=== PATIENT | female | born 1970 | race Caucasian/White ===

== ENCOUNTER 2022-10-27 13:48 | Emergency (ER) | payer BC, SELFPAY ==
[2022-10-27 14:25] LABS: #Lymphocytes 1.1 thou/uL (1.20-3.40); #Monocytes 1.2 thou/uL (0.11-0.59); #Neutrophils 9.3 thou/uL (1.40-6.50); %Basophils 0.1 % (0.0-1.0); %Eosinophils 0.1 % (0.0-10.0); %Lymphocytes 9.2 % (21.0-51.0); %Monocytes 10.3 % (0.0-10.0); %Neutrophils 80.3 % (42.0-75.0); Hemoglobin 10.2 g/dL (12.0-16.0); Mean Corpuscular HGB CONC 33.7 g/dL (32.0-36.0); Mean Platelet Volume 7.4 fL (7.4-10.4); Platelet Count 238 10x3/uL (130-400); RBC Distribution Width 14.4 % (11.5-14.5); Red Blood Cell (RBC) Count 3.52 mill/uL (4.20-5.40); White Blood Cell (WBC) Count 11.5 10x3/uL (4.8-10.8)
[2022-10-27] MEDS ORDERED: Acetaminophen 500 MG TAB ONE (14:31)
[2022-10-27] MEDS ORDERED: Ibuprofen 800 MG TAB ONE (14:31)
[2022-10-27 14:36] LABS: Bacteria/HPF 2+ HPF (None Seen); Bilirubin Negative (Negative); Blood, Urine 2+ (Negative); Clarity Clear (Clear); Glucose, Urine (Dipstick) Normal (Negative); Ketone, Urine Negative (Negative); Leukocyte 250 Leu/uL (Negative); Nitrite Negative (Negative); Protein, Urine (Dipstick) 30 mg/dL (Neg-Trace); RBC/HPF 0-3 HPF (0-3); Specific Gravity, Urine 1.006 (1.002-1.036); Urobilinogen Normal mg/dL (Less than 2)
[2022-10-27 14:47] LABS: ALT (SGPT) 32 U/L (8-55); AST (SGOT) 32 U/L (5-34); Alkaline Phosphatase 182 U/L (40-110); Anion Gap 13 mmol/L (10-20); BUN (Urea Nitrogen) 10 mg/dL (7.0-18.7); Bilirubin, Total 0.3 mg/dL (0.2-1.2); Calc. Creatinine Clearance 0 mL/min (70-130); Calcium 7.8 mg/dL (7.8-10.44); Carbon Dioxide 21 mmol/L (22-29); Chloride 106 mmol/L (98-107); Estimated GFR 69; Globulin 2.7 g/dL (2.4-3.5); Glucose 134 mg/dL (70-105); Potassium 2.8 mmol/L (3.5-5.1); Protein, Total 5.7 g/dL (6.0-8.3); Sodium 137 mmol/L (136-145)
[2022-10-27] MEDS ORDERED: cefTRIAXone\\ROCEPHIN 2 GM VIAL ONE (15:39)
[2022-10-27] MEDS ORDERED: Potassium Chloride 20 MEQ TAB ONE (15:39)
[2022-10-27 16:56] LABS: SARS-CoV-2 NAA Rapid Test Not Detected (NotDetected)
== END 2022-10-27 17:45 | disposition home or self-care (01) ==
LOC: ERS 13:48
DX: N39.0 Urinary tract infection, site not specified (principal); R30.0 Dysuria; D72.829 Elevated white blood cell count, unspecified; E78.5 Hyperlipidemia, unspecified; I10 Essential (primary) hypertension; Z20.822 Contact with and (suspected) exposure to COVID-19
CPT/HCPCS: 36415; 71046; 80053; 81003; 81015; 83605; 85025; 96365; J0696

== ENCOUNTER 2022-10-29 19:34 | Emergency (ER) | payer SELFPAY ==
[2022-10-29] MEDS ORDERED: cefTRIAXone\\ROCEPHIN 1 GM VIAL ONE (20:09)
[2022-10-29] MEDS ORDERED: Acetaminophen 500 MG TAB ONE (20:09)
[2022-10-29 20:16] LABS: Bilirubin Negative (Negative); Blood, Urine 1+ (Negative); Clarity Clear (Clear); Glucose, Urine (Dipstick) Normal (Negative); Ketone, Urine Negative (Negative); Leukocyte 75 Leu/uL (Negative); Nitrite Negative (Negative); Protein, Urine (Dipstick) 30 mg/dL (Neg-Trace); RBC/HPF 0-3 HPF (0-3); Specific Gravity, Urine 1.018 (1.002-1.036); Squamous Epithelial 0-3 HPF (0-3); Urobilinogen Normal mg/dL (Less than 2); WBC/HPF 21-50 HPF (0-3); pH, Urine 6.5 (5.0-9.0)
[2022-10-29 20:17] LABS: Bacteria/HPF Rare-Few HPF (None Seen)
[2022-10-29 20:44] LABS: #Eosinphils 0.1 thou/uL (0.0-0.7); #Lymphocytes 1.7 thou/uL (1.20-3.40); #Monocytes 1.1 thou/uL (0.11-0.59); %Basophils 0.4 % (0.0-1.0); %Eosinophils 1.3 % (0.0-10.0); %Lymphocytes 17.5 % (21.0-51.0); %Monocytes 10.7 % (0.0-10.0); %Neutrophils 70.1 % (42.0-75.0); Hemoglobin 9.9 g/dL (12.0-16.0); Mean Corpuscular HGB CONC 32.9 g/dL (32.0-36.0); Mean Corpuscular Hemoglobin 28.5 pg (27.0-31.0); Mean Corpuscular Volume 86.7 fl (78.0-98.0); Mean Platelet Volume 6.9 fL (7.4-10.4); Platelet Count 355 10x3/uL (130-400); RBC Distribution Width 14.8 % (11.5-14.5); Red Blood Cell (RBC) Count 3.46 mill/uL (4.20-5.40); White Blood Cell (WBC) Count 9.9 10x3/uL (4.8-10.8)
[2022-10-29] MEDS ORDERED: Vancomycin 1 GM/200 ML (FROZEN) BAG ONE (20:56)
[2022-10-29 20:59] LABS: ALT (SGPT) 23 U/L (8-55); AST (SGOT) 22 U/L (5-34); Albumin 3.1 g/dL (3.5-5.0); Alkaline Phosphatase 181 U/L (40-110); Anion Gap 14 mmol/L (10-20); BUN (Urea Nitrogen) 12 mg/dL (7.0-18.7); Bilirubin, Total 0.3 mg/dL (0.2-1.2); Calc. Creatinine Clearance 0 mL/min (70-130); Calcium 8.4 mg/dL (7.8-10.44); Carbon Dioxide 24 mmol/L (22-29); Chloride 105 mmol/L (98-107); Estimated GFR 90; Globulin 3.9 g/dL (2.4-3.5); Glucose 102 mg/dL (70-105); Potassium 2.9 mmol/L (3.5-5.1); Sodium 140 mmol/L (136-145)
== END 2022-10-29 22:56 | disposition home or self-care (01) ==
LOC: ERS 19:34
DX: N39.0 Urinary tract infection, site not specified (principal); I10 Essential (primary) hypertension; E78.5 Hyperlipidemia, unspecified
CPT/HCPCS: 36415; 74176; 80053; 81003; 81015; 83605; 85025; 87040; 87086; 96365; 96366; 96367; J0696; J3370-JW

== ENCOUNTER 2023-01-22 17:52 | Inpatient (IN) | payer SELFPAY ==
[2023-01-22] MEDS ORDERED: Ketorolac Tromethamine 30 MG/ML VIAL ONE (18:17)
[2023-01-22 18:55] LABS: #Basophils 0.1 thou/uL (0.0-0.2); #Eosinphils 0.2 thou/uL (0.0-0.7); #Lymphocytes 3.1 thou/uL (1.20-3.40); #Monocytes 0.5 thou/uL (0.11-0.59); #Neutrophils 5.1 thou/uL (1.40-6.50); %Basophils 0.9 % (0.0-1.0); %Eosinophils 2.2 % (0.0-10.0); %Lymphocytes 34.3 % (21.0-51.0); %Monocytes 5.9 % (0.0-10.0); %Neutrophils 56.8 % (42.0-75.0); Hemoglobin 12.1 g/dL (12.0-16.0); Mean Corpuscular HGB CONC 33.1 g/dL (32.0-36.0); Mean Corpuscular Hemoglobin 29.6 pg (27.0-31.0); Mean Corpuscular Volume 89.5 fl (78.0-98.0); Platelet Count 287 10x3/uL (130-400); RBC Distribution Width 13.7 % (11.5-14.5); Red Blood Cell (RBC) Count 4.08 mill/uL (4.20-5.40)
[2023-01-22 19:15] LABS: ALT (SGPT) 18 U/L (8-55); AST (SGOT) 17 U/L (5-34); Albumin 4.1 g/dL (3.5-5.0); Alkaline Phosphatase 72 U/L (40-110); Anion Gap 13 mmol/L (10-20); BUN (Urea Nitrogen) 15 mg/dL (7.0-18.7); Bilirubin, Total 0.2 mg/dL (0.2-1.2); Calc. Creatinine Clearance 0 mL/min (70-130); Calcium 9.2 mg/dL (7.8-10.44); Carbon Dioxide 21 mmol/L (22-29); Chloride 107 mmol/L (98-107); Estimated GFR 83; Globulin 3.2 g/dL (2.4-3.5); Glucose 96 mg/dL (70-105); Potassium 3.6 mmol/L (3.5-5.1); Protein, Total 7.3 g/dL (6.0-8.3); Sodium 137 mmol/L (136-145)
[2023-01-22] MEDS ORDERED: Diazepam 10 MG/2 ML SYRINGE ONE (19:57)
[2023-01-22] MEDS ORDERED: Orphenadrine Citrate 60 MG/2 ML VIAL ONE (21:08)
[2023-01-22] MEDS ORDERED: Dexamethasone 10 MG/ML VIAL ONE (21:19)
[2023-01-22] MEDS ORDERED: Calcium Carbonate 500 MG ChewTAB PO PRN (21:25)
[2023-01-22] MEDS ORDERED: Ondansetron PF 4 MG/2 ML Vial IVP PRN (21:25)
[2023-01-22] MEDS ORDERED: Ondansetron ODT 4 MG TAB PO PRN (21:25)
[2023-01-22] MEDS ORDERED: Senokot S 8.6-50 MG TAB PO PRN (21:25)
[2023-01-22] MEDS ORDERED: hydrALAZINE 20 MG/ML VIAL SLOW IVP PRN (21:32)
[2023-01-22] MEDS ORDERED: Sodium Chloride 0.9% 1,000 ML IV SCH (22:00)
[2023-01-22] MEDS: Ketorolac Tromethamine 30 MG/ML VIAL IVP PRN (23:21)
[2023-01-22] MEDS: Acetaminophen 325 MG TAB PO PRN (23:22)
[2023-01-22] MEDS: Dexamethasone 4 mg/ml Vial SLOW IVP SCH (23:22)
[2023-01-22] MEDS: Cyclobenzaprine 10 MG TAB PO PRN (23:22)
[2023-01-22 23:57] VITALS: BMI 24.8
[2023-01-23] MEDS: Morphine 2 MG/ML VIAL SLOW IVP PRN ×2 (00:49→06:53)
[2023-01-23] MEDS: Dexamethasone 4 mg/ml Vial SLOW IVP SCH ×3 (05:05→21:14)
[2023-01-23 07:03] LABS: #Lymphocytes 0.8 thou/uL (1.20-3.40); #Neutrophils 8.9 thou/uL (1.40-6.50); %Basophils 0.1 % (0.0-1.0); %Eosinophils 0.2 % (0.0-10.0); %Lymphocytes 8.3 % (21.0-51.0); %Monocytes 0.4 % (0.0-10.0); Hemoglobin 12.4 g/dL (12.0-16.0); Mean Corpuscular HGB CONC 32.6 g/dL (32.0-36.0); Mean Corpuscular Hemoglobin 29.2 pg (27.0-31.0); Mean Corpuscular Volume 89.6 fl (78.0-98.0); Mean Platelet Volume 7.2 fL (7.4-10.4); Platelet Count 291 10x3/uL (130-400); RBC Distribution Width 13.7 % (11.5-14.5); Red Blood Cell (RBC) Count 4.23 mill/uL (4.20-5.40); White Blood Cell (WBC) Count 9.8 10x3/uL (4.8-10.8)
[2023-01-23 07:11] LABS: Prothrombin Time 13.6 sec (12.0-14.7)
[2023-01-23 07:25] LABS: ALT (SGPT) 18 U/L (8-55); AST (SGOT) 17 U/L (5-34); Alkaline Phosphatase 65 U/L (40-110); Anion Gap 13 mmol/L (10-20); BUN (Urea Nitrogen) 16 mg/dL (7.0-18.7); Bilirubin, Total 0.2 mg/dL (0.2-1.2); Calc. Creatinine Clearance 99 mL/min (70-130); Calcium 8.8 mg/dL (7.8-10.44); Carbon Dioxide 18 mmol/L (22-29); Chloride 110 mmol/L (98-107); Estimated GFR 97; Globulin 3.4 g/dL (2.4-3.5); Glucose 129 mg/dL (70-105); Potassium 4.5 mmol/L (3.5-5.1); Protein, Total 7.4 g/dL (6.0-8.3); Sodium 136 mmol/L (136-145)
[2023-01-23] MEDS: Famotidine 20 MG TAB PO SCH ×2 (08:32→21:14)
[2023-01-23] MEDS: Cyclobenzaprine 10 MG TAB PO PRN ×2 (11:38→17:56)
[2023-01-23] MEDS: Acetaminophen/Codeine 30-300mg Tablet PO PRN ×2 (13:21→21:14)
[2023-01-23] MEDS ORDERED: Dexamethasone 4 mg/ml Vial SLOW IVP SCH (14:00)
[2023-01-23] MEDS: Acetaminophen 325 MG TAB PO PRN (16:08)
[2023-01-24] MEDS: Dexamethasone 4 mg/ml Vial SLOW IVP SCH (06:04)
[2023-01-24] MEDS: Acetaminophen/Codeine 30-300mg Tablet PO PRN (06:07)
[2023-01-24 08:19] VITALS: BP 149/85; TEMP 98.3
[2023-01-24] MEDS: Ketorolac Tromethamine 30 MG/ML VIAL IVP PRN (09:17)
[2023-01-24] MEDS: Cyclobenzaprine 10 MG TAB PO PRN (09:23)
[2023-01-24] MEDS: Famotidine 20 MG TAB PO SCH (09:23)
[2023-01-24] MEDS ORDERED: Dexamethasone 4 MG TAB PO SCH (15:00)
== END 2023-01-24 12:42 | disposition home or self-care (01) | DRG 552 ==
LOC: SUATTDRO 17:52 → ERS 17:52 → OBSVTOIN 21:29 → SURG A 21:29
PROVIDERS: ADMIT Internal Medicine; ATTEND Internal Medicine
DX: M48.02 Spinal stenosis, cervical region (principal); E78.5 Hyperlipidemia, unspecified; I10 Essential (primary) hypertension; F32.A Depression, unspecified; F41.9 Anxiety disorder, unspecified; Z88.5 Allergy status to narcotic agent; M50.30 Other cervical disc degeneration, unspecified cervical region
CPT/HCPCS: 36415; 72141; 80053; 85025; 85610; 96374; 96375; J1100; J1885; J2272; J2360; J3360; J7050

== ENCOUNTER 2023-08-05 13:43 | Inpatient (IN) | payer SELFPAY ==
[2023-08-05 15:31] LABS: #Basophils 0.1 thou/uL (0.0-0.2); #Eosinphils 0.4 thou/uL (0.0-0.7); #Monocytes 0.6 thou/uL (0.11-0.59); #Neutrophils 5.1 thou/uL (1.40-6.50); %Basophils 0.9 % (0.0-1.0); %Lymphocytes 29.1 % (21.0-51.0); %Monocytes 6.9 % (0.0-10.0); %Neutrophils 57.6 % (42.0-75.0); Hematocrit 34.9 % (36.0-47.0); Hemoglobin 11.1 g/dL (12.0-16.0); Mean Corpuscular HGB CONC 31.8 g/dL (32.0-36.0); Mean Corpuscular Hemoglobin 28.2 pg (27.0-31.0); Mean Corpuscular Volume 88.6 fl (78.0-98.0); Mean Platelet Volume 9.8 fL (7.4-10.4); Platelet Count 304 10x3/uL (130-400); Red Blood Cell (RBC) Count 3.94 mill/uL (4.20-5.40); White Blood Cell (WBC) Count 8.9 10x3/uL (4.8-10.8)
[2023-08-05 16:00] LABS: ALT (SGPT) 13 U/L (8-55); AST (SGOT) 20 U/L (5-34); Albumin 4.2 g/dL (3.5-5.0); Alkaline Phosphatase 84 U/L (40-110); Anion Gap 13 mmol/L (10-20); BUN (Urea Nitrogen) 14 mg/dL (7.0-18.7); Bilirubin, Total 0.2 mg/dL (0.2-1.2); CK (CPK) 251 U/L (29-168); Calc. Creatinine Clearance 0 mL/min (70-130); Calcium 8.6 mg/dL (7.8-10.44); Carbon Dioxide 24 mmol/L (22-29); Chloride 109 mmol/L (98-107); Estimated GFR 99; Globulin 2.2 g/dL (2.4-3.5); Glucose 87 mg/dL (70-105); Lipase 35 U/L (8-78); Potassium 3.9 mmol/L (3.5-5.1); Protein, Total 6.4 g/dL (6.0-8.3); Sodium 142 mmol/L (136-145)
[2023-08-05 16:03] LABS: Troponin I Less than 0.010 ng/mL (< 0.028)
[2023-08-05 18:20] LABS: Bacteria/HPF None Seen HPF (None Seen); Bilirubin Negative (Negative); Blood, Urine Negative (Negative); CAUTI Indications for Culture Dysuria,urgency,freq; Clarity Clear (Clear); Glucose, Urine (Dipstick) Normal (Negative); Ketone, Urine Negative (Negative); Leukocyte 75 Leu/uL (Negative); Nitrite Negative (Negative); Protein, Urine (Dipstick) 10 mg/dL (Neg-Trace); RBC/HPF 0-3 HPF (0-3); Specific Gravity, Urine 1.026 (1.002-1.036); Urobilinogen Normal mg/dL (Less than 2); WBC/HPF 21-50 HPF (0-3)
[2023-08-05 18:23] LABS: Urine Culture Reflex Yes Yes
[2023-08-05] MEDS ORDERED: Ketorolac Tromethamine 30 MG/ML VIAL ONE (20:22)
[2023-08-05] MEDS ORDERED: Ondansetron PF 4 MG/2 ML Vial ONE (20:22)
[2023-08-05] MEDS ORDERED: Nitrofurantoin Monohyd/M-Cryst 100 MG CAP ONE (20:22)
[2023-08-05] MEDS ORDERED: Dexamethasone 10 MG/ML VIAL ONE (22:39)
[2023-08-05] MEDS ORDERED: fentaNYL 50 mcg/mL 1 mL Vial ONE (22:39)
[2023-08-05] MEDS ORDERED: Acetaminophen 325 MG TAB PO PRN (23:10)
[2023-08-05] MEDS ORDERED: Dextrose 5%-Lactated Ringers 1,000 ML IV SCH (23:45)
[2023-08-05] MEDS ORDERED: Ondansetron ODT 4 MG TAB PO PRN (23:54)
[2023-08-05] MEDS ORDERED: Ondansetron PF 4 MG/2 ML Vial IVP PRN (23:54)
[2023-08-05] MEDS ORDERED: Gabapentin 300 MG CAP PO SCH (23:59)
[2023-08-06 01:25] VITALS: BMI 23.3
[2023-08-06] MEDS: tiZANidine HCl 4 MG TAB PO PRN ×2 (01:54→21:11)
[2023-08-06] MEDS ORDERED: Ketorolac Tromethamine 30 MG/ML VIAL IVP PRN (03:00)
[2023-08-06] MEDS: Dexamethasone 4 MG TAB PO SCH ×3 (06:10→17:33)
[2023-08-06 06:41] LABS: INR-International Normal Ratio 0.9; Prothrombin Time 12.8 sec (12.0-14.7)
[2023-08-06 06:42] LABS: PTT 27.7 sec (22.9-36.1)
[2023-08-06 06:58] LABS: Anion Gap 14 mmol/L (10-20); BUN (Urea Nitrogen) 12 mg/dL (7.0-18.7); Calc. Creatinine Clearance 98 mL/min (70-130); Calcium 8.7 mg/dL (7.8-10.44); Carbon Dioxide 20 mmol/L (22-29); Chloride 109 mmol/L (98-107); Estimated GFR 104; Glucose 142 mg/dL (70-105); Potassium 4.1 mmol/L (3.5-5.1); Sodium 139 mmol/L (136-145)
[2023-08-06] MEDS: Gabapentin 300 MG CAP PO SCH ×3 (08:24→21:10)
[2023-08-06] MEDS: Acetaminophen/Codeine 30-300mg Tablet PO PRN ×2 (12:51→21:11)
[2023-08-06] MEDS ORDERED: Iopamidol-370 76% 500 ML MDV (1 ML CHARGE) ONE (14:42)
[2023-08-06] MEDS ORDERED: Vancomycin 1 GM in Premix 1 BAG IVPB SCH ×2 (15:18→15:45)
[2023-08-06] MEDS: Cefepime 2 GM in Sodium Chloride 0.9% 100 ML IVPB SCH (15:52)
[2023-08-07] MEDS: Dexamethasone 4 MG TAB PO SCH ×5 (00:32→23:50)
[2023-08-07] MEDS: Vancomycin 1 GM in Premix 1 BAG IVPB SCH ×2 (04:40→17:20)
[2023-08-07] MEDS: Cefepime 2 GM in Sodium Chloride 0.9% 100 ML IVPB SCH ×2 (04:41→17:20)
[2023-08-07] MEDS ORDERED: Thrombin 5000 UNITS/5 ML VIAL ONE (07:26)
[2023-08-07] MEDS ORDERED: Bacitracin Zinc Ointment 30 gm TUBE ONE (07:26)
[2023-08-07] MEDS ORDERED: Vancomycin 1 GM VIAL ONE (07:26)
[2023-08-07] MEDS ORDERED: Midazolam HCl 2 mg/2 ml Vial ONE (07:37)
[2023-08-07] MEDS ORDERED: Fentanyl 250 MCG/5 ML VIAL ONE (07:37)
[2023-08-07] MEDS: Gabapentin 300 MG CAP PO SCH ×3 (08:21→22:12)
[2023-08-07] MEDS ORDERED: Dexamethasone 20 MG/5 ML VIAL ONE (08:40)
[2023-08-07] MEDS ORDERED: Ondansetron PF 4 MG/2 ML Vial ONE (08:40)
[2023-08-07] MEDS ORDERED: Vecuronium 10 MG VIAL ONE (08:40)
[2023-08-07] MEDS ORDERED: NEOSTIGMINE 3 MG/3 ML SYR 3 MG/3 ML SYRINGE ONE (08:40)
[2023-08-07] MEDS ORDERED: PROPOFOL 200 MG/20 ML VIAL ONE (08:40)
[2023-08-07] MEDS ORDERED: PHENYLEPHRINE-NS 100 MCG/ML 10 ML SYRINGE ONE (08:40)
[2023-08-07] MEDS ORDERED: Rocuronium Bromide 10 MG/ML (10ML VIAL) ONE (08:40)
[2023-08-07] MEDS ORDERED: Lidocaine 1% PF 5 ML VIAL ONE (08:40)
[2023-08-07] MEDS ORDERED: Glycopyrrolate 0.2 MG/ML 5 ML SYRINGE ONE (08:40)
[2023-08-07] MEDS ORDERED: diphenhydrAMINE 25 MG CAP PO PRN ×6 (14:03→21:10)
[2023-08-07] MEDS ORDERED: Milk Of Magnesia 30 ML UDCUP PO PRN (14:03)
[2023-08-07] MEDS ORDERED: Promethazine HCl 25 MG/ML VIAL IM PRN ×6 (14:12→21:10)
[2023-08-07] MEDS ORDERED: diphenhydrAMINE 50 MG/ML VIAL IM PRN ×5 (14:12→21:10)
[2023-08-07] MEDS ORDERED: Naloxone HCl 0.4 mg/ml Vial IV PRN ×5 (14:12→21:10)
[2023-08-07] MEDS ORDERED: FENTANYL 500 MCG/10 ML VIAL 2,000 MCG in Sodium Chloride 0.9% 60 ML IV PRN (14:12)
[2023-08-07] MEDS ORDERED: Ondansetron PF 4 MG/2 ML Vial IVP PRN ×5 (14:12→21:10)
[2023-08-07] MEDS ORDERED: diphenhydrAMINE 50 MG/ML VIAL IVP PRN ×5 (14:12→21:10)
[2023-08-07] MEDS ORDERED: CEFAZOLIN 2 GM in Sodium Chloride 0.9% 100 ML IVPB SCH (14:15)
[2023-08-07] MEDS ORDERED: ACTIVE PCA FS PRN (14:15)
[2023-08-07] MEDS ORDERED: Ondansetron HCl/PF 4 MG/2 ML Vial IVP PRN (14:17)
[2023-08-07] MEDS ORDERED: fentaNYL PF 100 MCG/2 ML SYRINGE ONE (14:26)
[2023-08-07] MEDS ORDERED: hydrALAZINE 20 MG/ML VIAL ONE (15:19)
[2023-08-07] MEDS: Sodium Chloride 0.9% 1,000 ML IV SCH (17:15)
[2023-08-07] MEDS ORDERED: Morphine CADD 1 MG/ML CADD IVPB PRN ×2 (20:57→21:03)
[2023-08-07] MEDS ORDERED: Communication Order-Pharmacy FS SCH ×4 (21:00→21:15)
[2023-08-07] MEDS ORDERED: Morphine 10 MG/ML VIAL SLOW IVP PRN (21:08)
[2023-08-07] MEDS: Morphine 4 MG/ML VIAL SLOW IVP PRN (22:18)
[2023-08-07] MEDS: tiZANidine HCl 4 MG TAB PO PRN (23:50)
[2023-08-08] MEDS: Sodium Chloride 0.9% 1,000 ML IV SCH ×2 (03:27→17:38)
[2023-08-08] MEDS: Cefepime 2 GM in Sodium Chloride 0.9% 100 ML IVPB SCH ×2 (03:27→14:27)
[2023-08-08] MEDS: Morphine 4 MG/ML VIAL SLOW IVP PRN ×2 (03:41→09:14)
[2023-08-08 04:06] LABS: Hematocrit 30.9 % (36.0-47.0); Hemoglobin 9.9 g/dL (12.0-16.0); Mean Corpuscular Hemoglobin 28.4 pg (27.0-31.0); Mean Corpuscular Volume 88.8 fl (78.0-98.0); Mean Platelet Volume 9.7 fL (7.4-10.4); Platelet Count 311 10x3/uL (130-400); RBC Distribution Width 16.4 % (11.5-14.5); Red Blood Cell (RBC) Count 3.48 mill/uL (4.20-5.40); White Blood Cell (WBC) Count 17.4 10x3/uL (4.8-10.8)
[2023-08-08 04:32] LABS: Anion Gap 12 mmol/L (10-20); BUN (Urea Nitrogen) 16 mg/dL (7.0-18.7); Calc. Creatinine Clearance 113 mL/min (70-130); Calcium 8.2 mg/dL (7.8-10.44); Carbon Dioxide 24 mmol/L (22-29); Chloride 106 mmol/L (98-107); Estimated GFR 108; Glucose 91 mg/dL (70-105); Potassium 3.7 mmol/L (3.5-5.1); Sodium 138 mmol/L (136-145)
[2023-08-08 04:35] LABS: Vancomycin, Trough 10.6 ug/mL
[2023-08-08] MEDS: Vancomycin 1 GM in Premix 1 BAG IVPB SCH ×2 (04:39→17:39)
[2023-08-08] MEDS: tiZANidine HCl 4 MG TAB PO PRN (05:36)
[2023-08-08] MEDS: Dexamethasone 4 MG TAB PO SCH ×4 (05:36→23:31)
[2023-08-08] MEDS: Ketorolac Tromethamine 30 MG/ML VIAL IVP PRN ×2 (09:13→17:39)
[2023-08-08] MEDS: Gabapentin 300 MG CAP PO SCH ×3 (09:21→20:29)
[2023-08-08] MEDS ORDERED: oxyCODONE 5 MG TAB PO PRN ×2 (09:51)
[2023-08-08] MEDS: Diazepam 5 MG TAB PO PRN ×2 (11:53→21:51)
[2023-08-08] MEDS: Acetaminophen/Codeine 30-300mg Tablet PO PRN ×2 (14:25→23:31)
[2023-08-08] MEDS: Docusate 100 MG CAP PO SCH ×2 (17:38→20:29)
[2023-08-08] MEDS: Morphine 2 MG/ML VIAL SLOW IVP PRN (20:30)
[2023-08-08] MEDS: hydrALAZINE 20 MG/ML VIAL SLOW IVP PRN (20:41)
[2023-08-09] MEDS: Ketorolac Tromethamine 30 MG/ML VIAL IVP PRN ×2 (04:45→15:36)
[2023-08-09] MEDS: Morphine 2 MG/ML VIAL SLOW IVP PRN ×2 (04:46→20:48)
[2023-08-09] MEDS: Sodium Chloride 0.9% 1,000 ML IV SCH (04:46)
[2023-08-09] MEDS: Cefepime 2 GM in Sodium Chloride 0.9% 100 ML IVPB SCH ×2 (04:46→15:35)
[2023-08-09] MEDS: hydrALAZINE 20 MG/ML VIAL SLOW IVP PRN (04:59)
[2023-08-09] MEDS: Dexamethasone 4 MG TAB PO SCH ×4 (05:34→23:27)
[2023-08-09] MEDS: Vancomycin 1 GM in Premix 1 BAG IVPB SCH ×2 (05:34→18:08)
[2023-08-09 05:40] LABS: Hematocrit 32.3 % (36.0-47.0); Hemoglobin 10.2 g/dL (12.0-16.0); Mean Corpuscular HGB CONC 31.6 g/dL (32.0-36.0); Mean Corpuscular Volume 88.7 fl (78.0-98.0); Platelet Count 285 10x3/uL (130-400); Red Blood Cell (RBC) Count 3.64 mill/uL (4.20-5.40); White Blood Cell (WBC) Count 15.3 10x3/uL (4.8-10.8)
[2023-08-09] MEDS: Diazepam 5 MG TAB PO PRN (05:58)
[2023-08-09] MEDS ORDERED: Fioricet 325/50/40 mg Tablet PO PRN (07:39)
[2023-08-09] MEDS ORDERED: cloNIDine 0.1 MG TAB PO PRN (07:40)
[2023-08-09] MEDS ORDERED: SUMAtriptan Succinate 25 MG TAB PO PRN (07:41)
[2023-08-09] MEDS ORDERED: Sodium Chloride 0.65% Nasal 44 ML BOT EA NARE PRN (07:52)
[2023-08-09] MEDS: Docusate 100 MG CAP PO SCH ×2 (10:00→20:48)
[2023-08-09] MEDS: Gabapentin 300 MG CAP PO SCH ×3 (10:00→20:47)
[2023-08-09] MEDS: Acetaminophen/Codeine 30-300mg Tablet PO PRN ×3 (11:24→23:27)
[2023-08-09] MEDS ORDERED: Vancomycin 1 GM in Premix 1 BAG IVPB SCH (16:15)
[2023-08-09] MEDS ORDERED: Vancomycin (BATCH) 1.25 GM in Premix 1 BAG IVPB SCH (20:00)
[2023-08-09] MEDS ORDERED: Vancomycin HCl 500 MG in Sodium Chloride 0.9% 100 ML IVPB SCH (21:00)
[2023-08-10] MEDS: Acetaminophen/Codeine 30-300mg Tablet PO PRN ×4 (04:30→22:38)
[2023-08-10] MEDS: Cefepime 2 GM in Sodium Chloride 0.9% 100 ML IVPB SCH ×2 (04:31→15:55)
[2023-08-10] MEDS: Dexamethasone 4 MG TAB PO SCH ×4 (04:31→23:21)
[2023-08-10] MEDS: Morphine 2 MG/ML VIAL SLOW IVP PRN ×2 (07:40→16:48)
[2023-08-10] MEDS: Docusate 100 MG CAP PO SCH ×2 (08:48→21:31)
[2023-08-10] MEDS: Vancomycin (BATCH) 1.25 GM in Premix 1 BAG IVPB SCH ×2 (08:48→21:31)
[2023-08-10] MEDS: Gabapentin 300 MG CAP PO SCH ×3 (08:48→21:30)
[2023-08-10] MEDS: NIFEdipine XL 30 MG ER.TAB PO SCH (08:49)
[2023-08-10 11:03] LABS: #Neutrophils 12.6 thou/uL (1.40-6.50); %Basophils 0.3 % (0.0-1.0); %Lymphocytes 9.4 % (21.0-51.0); %Monocytes 6.3 % (0.0-10.0); %Neutrophils 82.4 % (42.0-75.0); Hematocrit 32.3 % (36.0-47.0); Hemoglobin 10.2 g/dL (12.0-16.0); Mean Corpuscular HGB CONC 31.6 g/dL (32.0-36.0); Mean Corpuscular Hemoglobin 27.6 pg (27.0-31.0); Mean Corpuscular Volume 87.5 fl (78.0-98.0); Mean Platelet Volume 9.6 fL (7.4-10.4); Platelet Count 338 10x3/uL (130-400); RBC Distribution Width 15.9 % (11.5-14.5); Red Blood Cell (RBC) Count 3.69 mill/uL (4.20-5.40); White Blood Cell (WBC) Count 15.3 10x3/uL (4.8-10.8)
[2023-08-10 11:29] LABS: Anion Gap 12 mmol/L (10-20); BUN (Urea Nitrogen) 15 mg/dL (7.0-18.7); Calc. Creatinine Clearance 109 mL/min (70-130); Calcium 8.7 mg/dL (7.8-10.44); Carbon Dioxide 25 mmol/L (22-29); Chloride 103 mmol/L (98-107); Estimated GFR 108; Glucose 138 mg/dL (70-105); Potassium 4.1 mmol/L (3.5-5.1); Sodium 136 mmol/L (136-145)
[2023-08-10 14:50] LABS: Bilirubin Negative (Negative); Blood, Urine Trace (Negative); CAUTI Indications for Culture Dysuria,urgency,freq; Clarity Turbid (Clear); Glucose, Urine (Dipstick) Normal (Negative); Ketone, Urine Negative (Negative); Leukocyte 75 Leu/uL (Negative); Nitrite Negative (Negative); Protein, Urine (Dipstick) 10 mg/dL (Neg-Trace); RBC/HPF 0-3 HPF (0-3); Specific Gravity, Urine 1.019 (1.002-1.036); Squamous Epithelial Greater than 50 HPF (0-3); Urobilinogen Normal mg/dL (Less than 2)
[2023-08-10 14:58] LABS: Bacteria/HPF 1+ HPF (None Seen); Urine Culture Reflex No No
[2023-08-11] MEDS: Morphine 2 MG/ML VIAL SLOW IVP PRN ×2 (03:07→07:00)
[2023-08-11] MEDS: Cefepime 2 GM in Sodium Chloride 0.9% 100 ML IVPB SCH (03:08)
[2023-08-11] MEDS: Dexamethasone 4 MG TAB PO SCH (06:28)
[2023-08-11] MEDS: Acetaminophen/Codeine 30-300mg Tablet PO PRN ×2 (06:28→15:09)
[2023-08-11 06:57] LABS: #Basophils 0.1 thou/uL (0.0-0.2); #Neutrophils 10.8 thou/uL (1.40-6.50); %Basophils 0.4 % (0.0-1.0); %Eosinophils 0.1 % (0.0-10.0); %Lymphocytes 13.4 % (21.0-51.0); %Neutrophils 77.2 % (42.0-75.0); Hematocrit 34.4 % (36.0-47.0); Hemoglobin 10.6 g/dL (12.0-16.0); Mean Corpuscular HGB CONC 30.8 g/dL (32.0-36.0); Mean Corpuscular Hemoglobin 27.1 pg (27.0-31.0); Mean Platelet Volume 9.6 fL (7.4-10.4); Platelet Count 368 10x3/uL (130-400); RBC Distribution Width 15.9 % (11.5-14.5); Red Blood Cell (RBC) Count 3.91 mill/uL (4.20-5.40); White Blood Cell (WBC) Count 13.9 10x3/uL (4.8-10.8)
[2023-08-11 07:20] LABS: Vancomycin, Trough 13.4 ug/mL
[2023-08-11 07:21] LABS: Anion Gap 13 mmol/L (10-20); BUN (Urea Nitrogen) 16 mg/dL (7.0-18.7); Calc. Creatinine Clearance 109 mL/min (70-130); Calcium 8.7 mg/dL (7.8-10.44); Carbon Dioxide 27 mmol/L (22-29); Chloride 103 mmol/L (98-107); Estimated GFR 108; Glucose 103 mg/dL (70-105); Potassium 4.4 mmol/L (3.5-5.1); Sodium 139 mmol/L (136-145)
[2023-08-11] MEDS: Docusate 100 MG CAP PO SCH (08:12)
[2023-08-11] MEDS: NIFEdipine XL 30 MG ER.TAB PO SCH (08:16)
[2023-08-11] MEDS: Gabapentin 300 MG CAP PO SCH ×2 (08:16→15:13)
[2023-08-11] MEDS: Vancomycin (BATCH) 1.25 GM in Premix 1 BAG IVPB SCH (08:32)
[2023-08-11] MEDS ORDERED: LevoFLOXacin 750 mg/D5W 750 MG in Premix 1 BAG IVPB SCH (09:00)
[2023-08-11] MEDS ORDERED: Dexamethasone 1 MG TAB PO SCH (12:00)
[2023-08-11 14:28] VITALS: BP 167/107; TEMP 98.2
[2023-08-13] MEDS ORDERED: Dexamethasone 1 MG TAB PO SCH (12:00)
[2023-08-15] MEDS ORDERED: Dexamethasone 1 MG TAB PO SCH (12:00)
== END 2023-08-11 15:39 | disposition home or self-care (01) | DRG 454 ==
LOC: ERS 13:43 → SURG B 23:02 → OBSVTOIN 08-06 12:03
PROVIDERS: ADMIT Student in an Organized Health Care Education/Training Program; ATTEND Internal Medicine
PROC: 0RG20A0 Fusion of 2 or more Cervical Vertebral Joints with Interbody Fusion Device, Anterior Approach, Anterior Column, Open Approach (ICD-10-PCS; principal; 2023-08-07)
PROC: 0RG2071 Fusion of 2 or more Cervical Vertebral Joints with Autologous Tissue Substitute, Posterior Approach, Posterior Column, Open Approach (ICD-10-PCS; 2023-08-07)
PROC: 01N10ZZ Release Cervical Nerve, Open Approach (ICD-10-PCS; 2023-08-07)
PROC: 00NW0ZZ Release Cervical Spinal Cord, Open Approach (ICD-10-PCS; 2023-08-07)
PROC: 0RB30ZZ Excision of Cervical Vertebral Disc, Open Approach (ICD-10-PCS; 2023-08-07)
DX: M48.02 Spinal stenosis, cervical region (principal); G95.20 Unspecified cord compression; M48.061 Spinal stenosis, lumbar region without neurogenic claudication; I10 Essential (primary) hypertension; E78.5 Hyperlipidemia, unspecified; F32.A Depression, unspecified; M48.04 Spinal stenosis, thoracic region; R33.9 Retention of urine, unspecified; M51.24 Other intervertebral disc displacement, thoracic region; N31.9 Neuromuscular dysfunction of bladder, unspecified; N39.498 Other specified urinary incontinence; G43.909 Migraine, unspecified, not intractable, without status migrainosus; M54.12 Radiculopathy, cervical region; Z88.8 Allergy status to other drugs, medicaments and biological substances; Z98.890 Other specified postprocedural states; Z79.899 Other long term (current) drug therapy
CPT/HCPCS: 36415; 70450; 70498; 72141; 72146; 72148; 80048; 80053; 80202; 81001; 82550; 83690; 83735; 84484; 85025; 85027; 85610; 85730; 87077; 87086; 87186; 93970; 96374; 96375; C1713; J0360; J0692; J1100; J1200; J1885; J1956; J2250; J2270; J2272; J2405; J2704; J3010; J3370; J3370-JW; J3490; J7050; J8540; Q9967

== ENCOUNTER 2023-09-05 18:30 | Emergency (ER) | payer SELFPAY ==
[2023-09-05] MEDS ORDERED: Ketorolac Tromethamine 30 MG/ML VIAL ONE (19:25)
[2023-09-05 20:20] LABS: #Eosinphils 0.4 thou/uL (0.0-0.7); #Monocytes 0.5 thou/uL (0.11-0.59); #Neutrophils 2.8 thou/uL (1.40-6.50); %Basophils 0.7 % (0.0-1.0); %Eosinophils 8.1 % (0.0-10.0); %Lymphocytes 29.6 % (21.0-51.0); %Monocytes 8.4 % (0.0-10.0); %Neutrophils 52.3 % (42.0-75.0); Hematocrit 31.3 % (36.0-47.0); Hemoglobin 9.9 g/dL (12.0-16.0); Mean Corpuscular HGB CONC 31.6 g/dL (32.0-36.0); Mean Corpuscular Hemoglobin 27.1 pg (27.0-31.0); Mean Corpuscular Volume 85.8 fl (78.0-98.0); Platelet Count 365 10x3/uL (130-400); RBC Distribution Width 15.2 % (11.5-14.5); Red Blood Cell (RBC) Count 3.65 mill/uL (4.20-5.40); White Blood Cell (WBC) Count 5.3 10x3/uL (4.8-10.8)
[2023-09-05 20:48] LABS: ALT (SGPT) 15 U/L (8-55); AST (SGOT) 19 U/L (5-34); Albumin 3.9 g/dL (3.5-5.0); Alkaline Phosphatase 95 U/L (40-110); Anion Gap 14 mmol/L (10-20); BUN (Urea Nitrogen) 7 mg/dL (9.8-20.1); Bilirubin, Total 0.2 mg/dL (0.2-1.2); Calc. Creatinine Clearance 0 mL/min (70-130); Calcium 8.9 mg/dL (7.8-10.44); Carbon Dioxide 23 mmol/L (22-29); Chloride 108 mmol/L (98-107); Estimated GFR 106; Globulin 3.5 g/dL (2.4-3.5); Glucose 106 mg/dL (70-105); Potassium 3.5 mmol/L (3.5-5.1); Protein, Total 7.4 g/dL (6.0-8.3); Sodium 141 mmol/L (136-145)
[2023-09-05] MEDS ORDERED: Morphine 4 MG/ML VIAL ONE (21:14)
[2023-09-05 21:51] LABS: Bacteria/HPF None Seen HPF (None Seen); Bilirubin Negative (Negative); Blood, Urine Negative (Negative); CAUTI Indications for Culture Dysuria,urgency,freq; Clarity Clear (Clear); Glucose, Urine (Dipstick) Normal (Negative); Ketone, Urine Negative (Negative); Leukocyte Negative Leu/uL (Negative); Nitrite Negative (Negative); Protein, Urine (Dipstick) Negative (Neg-Trace); RBC/HPF 0-3 HPF (0-3); Specific Gravity, Urine 1.021 (1.002-1.036); Squamous Epithelial 0-3 HPF (0-3); Urobilinogen Normal mg/dL (Less than 2); WBC/HPF 0-3 HPF (0-3)
[2023-09-05 21:53] LABS: Urine Culture Reflex No No
== END 2023-09-05 23:11 | disposition home or self-care (01) ==
LOC: ERS 18:30
DX: R10.9 Unspecified abdominal pain (principal); I10 Essential (primary) hypertension
CPT/HCPCS: 74176; 80053; 81001; 83605; 85025; 87040; 96374; J1885; J2270

== ENCOUNTER 2023-09-21 14:44 | Outpatient (CLI) | payer SELFPAY | END 2023-09-21 14:45 | disposition home or self-care (01) | LOC: RAD 14:44 | PROVIDERS: ATTEND Surgery | DX: M47.12 Other spondylosis with myelopathy, cervical region (principal); M54.12 Radiculopathy, cervical region; Z98.890 Other specified postprocedural states | CPT/HCPCS: 72040 ==